=== PATIENT | male | born 1985 | race Caucasian/White ===

== ENCOUNTER 2017-07-28 19:28 | Inpatient (IN) | payer MEDICARE, MEDICAID ==
--- NOTE | 2017-07-28 20:42 | C.PDOC ---
History Of Present Illness 32 year old male presents to the emergency department after being accepted for a psychiatric transfer from [facility]. At [facility], patient presented to the ED with abdominal pain, depressed mood and suicidal ideation. Patient states he uses cocaine, heroin, and marijuana, sisi barnes uses 20 bags of heroin daily. Patient has a history of bipolar disorder for which he is currently not taking any medications. Time Seen by Provider: 07/28/17 19:39 Chief Complaint (Nursing): Psychiatric Evaluation History Per: Patient History/Exam Limitations: no limitations Onset/Duration Of Symptoms: Hrs Current Symptoms Are (Timing): Still Present Suicide/Self Injury Attempted (Context): None Modifying Factor(s): Marijuana, Cocaine, Other (heroin) Associated Symptoms: Depression, Suicidal Thoughts, Suicidal Plan Additional History Per: Other ([facility] ED) Past Medical History Reviewed: Historical Data, Nursing Documentation, Vital Signs Vital Signs: Last Vital Signs Temp 97.7 F 07/29/17 06:37 Pulse 73 07/29/17 06:37 Resp 18 07/29/17 06:37 BP 108/65 07/29/17 06:37 Pulse Ox 99 07/28/17 23:10 - Medical History PMH: Anxiety, Bipolar Disorder, Depression, Hypercholesterolemia Family History: States: No Known Family Hx - Social History Hx Alcohol Use: No Hx Substance Use: Yes (Heroin, cocaine, marijuana. ) - Immunization History Hx Tetanus Toxoid Vaccination: No Hx Influenza Vaccination: No Hx Pneumococcal Vaccination: No Review Of Systems Except As Marked, All Systems Reviewed And Found Negative. Constitutional: Negative for: Fever Eyes: Negative for: Pain, Vision Change, Conjunctivae Inflammation ENT: Negative for: Ear Pain, Ear Discharge, Nose Pain Cardiovascular: Negative for: Chest Pain, Palpitations, Orthopnea Respiratory: Negative for: Cough, Shortness of Breath, Hemoptysis, SOB with Excertion, Pleuritic Pain Gastrointestinal: Positive for: Abdominal Pain. Negative for: Nausea, Vomiting Genitourinary: Negative for: Dysuria, Frequency, Incontinence Musculoskeletal: Negative for: Neck Pain, Shoulder Pain Neurological: Negative for: Weakness Psych: Positive for: Depression, Suicidal ideation Physical Exam - Physical Exam Appears: Non-toxic, No Acute Distress Skin: Normal Color, Warm, Dry Head: Atraumatic, Normacephalic Eye(s): bilateral: Normal Inspection, PERRL, EOMI Ear(s): Bilateral: Normal Nose: Normal Oral Mucosa: Moist Tongue: Normal Appearing Lips: Normal Appearing Teeth: No Normal Dentition (poor dentition) Gingiva: Normal Appearing Throat: Normal Neck: Normal, Supple Cardiovascular: Rhythm Regular, No Murmur Respiratory: Normal Breath Sounds, No Rales, No Rhonchi, No Wheezing Gastrointestinal/Abdominal: Normal Exam, Soft, No Tenderness, No Distention Extremity: Normal ROM, No Tenderness Extremity: Bilateral: Atraumatic Neurological/Psych: Oriented x3, Normal Speech, Normal Cognition ED Course And Treatment O2 Sat by Pulse Oximetry: 99 (RA) Pulse Ox Interpretation: Normal Medical Decision Making Medical Decision Making: Plan: Alcohol Serum Admission to Hospital Labs, x-rays, and EKG from [facility]. EKG unremarkable. Disposition Counseled Patient/Family Regarding: Diagnosis - Disposition Disposition: HOSPITALIZED Disposition Time: 20:41 Condition: GOOD - Clinical Impression Clinical Impression: Manic bipolar I disorder, Depression, Suicidal behavior - Scribe Statement The provider has reviewed the documentation as recorded by the Scribe All medical record entries made by the Scribe were at my direction and personally dictated by me. I have reviewed the chart and agree that the record accurately reflects my personal performance of the history, physical exam, medical decision making, and the department course for this patient. I have also personally directed, reviewed, and agree with the discharge instructions and disposition.
[2017-07-28 23:01] VITALS: O2SAT 99
[2017-07-29 02:27] VITALS: RESP 18
--- NOTE | 2017-07-29 03:07 | PCM.BM ---
Treatment Plan Problems - Problems identified on initial assessmt Suicidal Ideation Date Initiated: 07/28/17 Time Initiated: 21:15 Assessment reference: NA Status: Monitor Opiates Abuse Date Initiated: 07/28/17 Time Initiated: 21:15 Assessment reference: NA Status: Active Treatment assets and liabiliti Patient Assests: ADL independent, physically healthy Patient Liabilities: poor support system, substance abuse (Heroin, Cocaine, Marijuana) - Milieu Protocol Maintain good personal hygiene: daily Encourage regular showers, daily Remind patient to perform daily oral care, every shift Assist patient to perform ADL's Conduct patient checks and document Observation sheet: Q15 minutes Maintain personal safety: every shift Educate patient to report safety concerns to staff, every shift Monitor environment for contraband/sharps Medication safety: Monitor for expected outcome, potential side effects: every shift, Assess barriers to learning: every shift, Assess readiness for medication education: every shift
[2017-07-29 06:38] VITALS: BP 108/65; PULSE 73; TEMP 97.7
--- NOTE | 2017-07-29 10:42 | PCM.PSYCH ---
Initial Psychiatric Evaluation - Initial Psychiatric Evaluation Type of Admission: Voluntary Legal Status: Capacity Chief Complaint (in patient's own words): I came here for detox.' History of Present Illness and Precipitating Events: Patient is a 32 year old single male, who is currently unemployed, was transferred from [facility], because of depressed mood and suicidal ideations. Patient reports history of bipolar disorder and history of multiple psychiatric hospitalizations. He was just discharged from [facility] few months ago. As per the patient soon after discharge, he stopped taking his medications and relapsed on heroin, cocaine and marijuana. Patient reports of abusing 10-30 bags of heroin along with 10-50 or cocaine daily. Patient said he's been feeling bad for 2 days and waited to come because he "was holding it on". Patient reports withdrawal symptoms from heroine including nausea, vomiting, diarrhea, sweating, and joint pains. He reports depressed mood, irritability, agitation, poor sleep and paranoia. He also reports auditory hallucinations, noncommand type and visual hallucinations, shadows. Past medical history none reported Current Medications: Active Medications Generic Name Dose Route Start Last Admin Trade Name Freq PRN Reason Stop Dose Admin Acetaminophen 650 mg 07/28/17 21:35 Tylenol 325mg Tab PO Q6 PRN Pain, moderate (4-7) Dicyclomine HCl 10 mg 07/28/17 21:35 Bentyl PO Q6H PRN gastric spasms Haloperidol 5 mg 07/28/17 21:35 Haldol PO Q1H PRN agitation max 4x/24h Hydroxyzine HCl 25 mg 07/28/17 21:35 Atarax PO Q4H PRN Anxiety Lorazepam 1 mg 07/28/17 21:33 07/29/17 10:36 Ativan PO 1 mg DAILY PRN Administration severe anxiety Methadone HCl 15 mg 07/29/17 14:00 Methadone PO 08/01/17 13:59 DAILY AMIRA Taper Mirtazapine 15 mg 07/28/17 22:00 07/28/17 23:49 Remeron PO 15 mg HS AMIRA Administration Pneumococcal Polyvalent Vaccine 0.5 ml 07/31/17 10:00 Pneumovax 23 Vaccine IM 07/31/17 10:01 .ONCE ONE Quetiapine Fumarate 100 mg 07/28/17 22:00 07/28/17 23:49 Seroquel PO 100 mg HS AMIRA Administration Past Psychiatric History - Past Psychiatric History Previous Treatment History: Inpatient Pertinent Medical Hx (Current Medical&Sleep Prob, Allergies): Allergies Allergy/AdvReac Type Severity Reaction Status Date / Time aspirin Allergy Verified 07/28/17 19:36 Penicillins Allergy Verified 07/28/17 19:36 Codeine Sulfate 30 mg PO Q6 PRN 11/24/14 QUEtiapine [SEROquel] 1 tab PO DAILY 11/24/14 diaZEpam [Valium] 5 mg PO Q8 #12 tab 11/24/14 oxyCODONE/Acetaminophen [Percocet 5/325 mg Tab] 1 tab PO Q6 PRN #20 tab Review of Systems - Review of Systems All systems: reviewed and no additional remarkable complaints except - Psychiatric Psychiatric: Anxiety, Auditory Hallucinations, Irritability, Suicidal Ideation Mental Status Examination - Personal Presentation Personal Presentation: Looks stated age - Affect Affect: Broad - Motor Activity Motor Activity: Psychomotor Agitation - Reliability in Providing Information Reliability in Providing Information: Fair - Speech Speech: Organized - Mood Mood: Depressed, Anxious - Formal Thought Process Formal Thought Process: Hallucinations - Hallucinations/Delusions Hallucinations: Auditory Delusions: Persecution - Obsessions/Compulsions Obsessions: No Compulsions: No - Cognitive Functions Orientation: Person, Place, Situation, Time Sensorium: Alert Attention/Concentration: Attentive Abstract Thinking: [place] Estimate of Intelligence: Below average Judgement: Imparied, as evidence by: Poor judgement, Imparied, as evidence by: Lack of insight into illness - Risk Risk: Suicidal, Withdrawal, Diminished functioning - Limitations Limitations: Living alone DSM 5 DX - DSM 5 DSM 5 Diagnosis: Bipolar disorder MRE mixed severe with psychotic features Opioid use disorder severe Opioid withdrawal Cocaine severe use disorder severe Cannabis use disorder severe - Recommended/Plan of Treatment Treatment Recommendations and Plan of Treatment: Bipolar disorder MRE mixed severe with psychotic features CBT Psychoeducation Supportive therapy, group therapy, individual therapy Prolixin 5 mg by mouth twice a day Cogentin 1 mg by mouth twice a day Seroquel 100 mg PO QHS Depakote 500 mg by mouth twice a day Ativan 1 mg by mouth every 6 hours when necessary Opioid use disorder severe CBT Psychoeducation Supportive therapy, individual therapy Use DC for abstinence Opioid withdrawal CBT Psychoeducation Supportive therapy, individual therapy Clonidine when necessary Methadone taper Cocaine severe use disorder severe CBT Psychoeducation Supportive therapy, individual therapy Use DC for abstinence Cannabis use disorder severe Monitor signs and symptoms Use DC for abstinence - Smoking Cessation Smoking Cessation Initiated: No
[2017-07-29] MEDS ORDERED: Divalproex 500 mg DR Tab PO SCH (10:45)
--- NOTE | 2017-07-30 15:31 | PCM.PYCHDC ---
Mental Status Examination - Mental Status Examination Orientation: Person, Place, Situation, Time Memory: Intact Mood: Neutral Affect: Broad Speech: Loud, Pressured Attention: WNL Concentration: WNL Association: WNL Fund of Knowledge: WNL Formal Thought Process: No Impairment Description of patient's judgement and insight: partially impaired Psychotic Thoughts and Behaviors: Denies any AVH Suicidal Ideation: No Current Homicidal Ideation?: No Discharge Summary - Discharge Note Reason for Hospitalization: Patient is a 32 year old single male, who is currently unemployed, was transferred from [facility], because of depressed mood and suicidal ideations. Patient reports history of bipolar disorder and history of multiple psychiatric hospitalizations. He was just discharged from [facility] few months ago. As per the patient soon after discharge, he stopped taking his medications and relapsed on heroin, cocaine and marijuana. Patient reports of abusing 10-30 bags of heroin along with 10-50 or cocaine daily. Patient said he's been feeling bad for 2 days and waited to come because he "was holding it on". Patient reports withdrawal symptoms from heroine including nausea, vomiting, diarrhea, sweating, and joint pains. He reports depressed mood, irritability, agitation, poor sleep and paranoia. He also reports auditory hallucinations, noncommand type and visual hallucinations, shadows. Consultations:: List each consultation separately and include: 1. Reason for request. 2. Findings. 3. Follow-up Summary of Hospital Course include:: 1. Description of specific treatment plan utilized for patients during their course of treatmen. 2. Summarize the time- course for resolution of acute symptoms and/or regressed behaviors. 3. Describe issues identified and worked on during hospitalization. 4. Describe medication utilized. 5. Describe medical problems identified and treated. 6. Reassessment of suicide risk Summary of Hospital Course: Patient remained belligerent and loud throughout the stay. He started cursing and yelling at the staff since morning. He started hanging around with other peers and started discussing, 'how to get the drugs easily'. He remained med seeking and continued to ask for more methadone, Ativan and Adderall. When he was refused, he started yelling and cursing and demanded to be discharged AMA. Finally security was called and patient was discharged. He denied any denied suicidal ideation or homicidal ideation. He denied any auditory or visual hallucinations upon discharge. He refused to get any prescriptions. - Final Diagnosis (DSM 5) Condition upon Discharge: GOOD DSM 5: Bipolar disorder MRE mixed severe with psychotic features Opioid use disorder severe Opioid withdrawal Cocaine severe use disorder severe Cannabis use disorder severe Disposition: AGAINST MEDICAL ADVICE Follow-up Treatment Plan: Education: Pt was educated and counseled about the risks and benefits of taking and not taking medications. Pt was educated and counseled about the risks of drinking and abusing drugs. Pt was educated and counseled to go to the ER or call 911 if pt develop suicidal ideation or homicidal ideation, worsening of symptoms or severe side effects of the meds. - Smoking Cessation Smoking Cessation Medication prescribed: No - Antipsychotic Medications Pt discharged on 2 or more routine antipsychotic medications: No
[2017-07-31] MEDS ORDERED: Pneumococcal 23-Valent Vaccine IM ONE (10:00)
== END 2017-07-29 15:30 | disposition left against medical advice (07) | DRG 885 ==
LOC: C.ER 19:28 → C.5E 20:42
PROVIDERS: ADMIT Psychiatry & Neurology Psychiatry; ATTEND Psychiatry & Neurology Psychiatry
PROC: HZ2ZZZZ Detoxification Services for Substance Abuse Treatment (ICD-10-PCS; principal; 2017-07-28)
DX: F31.63 Bipolar disorder, current episode mixed, severe, without psychotic features (principal); F11.23 Opioid dependence with withdrawal; R45.851 Suicidal ideations; M25.50 Pain in unspecified joint; F14.90 Cocaine use, unspecified, uncomplicated